=== PATIENT | female | born 1940 | race Caucasian/White ===

== ENCOUNTER 2020-09-02 11:24 | Emergency (ER) | payer MEDICARE ==
[2020-09-02] MEDS ORDERED: Bacitracin Oint 1 GM U/D Packet TOP ONE (11:43)
[2020-09-02] MEDS ORDERED: Lidocaine 1% with EPINEPHrine 1:100,000 50 ML MDV SUBCUT STA (11:43)
--- NOTE | 2020-09-02 11:58 | EDM.PDOC ---
ED HPI GENERAL MEDICAL PROBLEM - General Chief Complaint: Laceration Stated Complaint: GASH ON RIGHT LEFT, FELL OVER FENCE Time Seen by Provider: 09/02/20 11:35 Source of Information: Reports: Patient, Old Records History Limitations: Reports: No Limitations - History of Present Illness INITIAL COMMENTS - FREE TEXT/NARRATIVE: 80 yo female tripped on low fence today and incurred a laceration of the R medial leg. Bleeding has slowed on arrival. Is not sure about her tetanus status. No other injuries reported. Onset: Today, Sudden Onset Date: 09/02/20 Duration: Minutes:, Constant Location: Reports: Lower Extremity, Right Quality: Reports: Dull Severity: Mild Improves with: Reports: None Worsens with: Reports: None Context: Reports: Trauma Associated Symptoms: Reports: No Other Symptoms Treatments INSTRUMENT REPAIR SPECIALIST: Reports: Other (see below) (none) - Related Data Allergies Allergy/AdvReac Type Severity Reaction Status Date / Time No Known Allergies Allergy Verified 09/02/20 11:42 ED ROS GENERAL - Review of Systems Review Of Systems: See Below Constitutional: Reports: No Symptoms Skin: Reports: Wound (L shaped laceration of the R medial leg) Neurological: Reports: No Symptoms. Denies: Numbness Psychiatric: Reports: No Symptoms ED EXAM, SKIN/RASH Exam: See Below Exam Limited By: No Limitations General Appearance: Alert, WD/WN, No Apparent Distress Extremities: Other (wound R leg medially) Neurological: Alert, Oriented, CN II-XII Intact, Normal Cognition, No Motor/Sensory Deficits Psychiatric: Normal Affect, Normal Mood Skin: Warm, Dry, Normal Color, No Rash, Wound/Incision (11 cm L shaped laceration to the medial R leg. ). No: Intact Location, Skin: Lower Extremity, Right Characteristics: Other (L shaped) Associated features: Tenderness. No: Warmth, Induration, Lymphangitis ED SKIN PROCEDURES - Laceration/Wound Repair Right Medial Leg Appearance: Subcutaneous, Other (L shaped) Distal NVT: Neuro & Vascular Intact, No Tendon Injury Anesthetic Type: Local Local Anesthesia - Lidocaine (Xylocaine): 1% with EPI Skin Prep: Saline Saline Irrigation (cc's): 60 Exploration/Debridement/Repair: Wound Explored Closed with: Sutures Lac/Wound length In cm: 11 Suture Size: Other (4-0 and 5-0 Ethilon) # of Sutures: 20 Suture Type: Nylon, Interrupted, Simple, Mattress Drain Placement: No Sterile Dressing Applied: Nurse Tetanus Status Addressed: Yes Complications: No Course - Orders/Labs/Meds Orders: Active Orders 24 hr Category Date Time Status Bacitracin [Bacitracin Oint 1 GM] Med 09/02/20 11:43 Once 2 dose TOP ONETIME ONE Lidocaine 1% w/EPINEPHrine [Xylocaine 1% with Med 09/02/20 11:43 Stat EPINEPHrine 1:100,000] 12 ml SUBCUT NOW STA Departure - Departure Time of Disposition: 12:40 Disposition: Home, Self-Care 01 Condition: Fair Clinical Impression: Laceration of right leg excluding thigh Qualifiers: Encounter type: initial encounter Qualified Code(s): S81.811A - Laceration without foreign body, right lower leg, initial encounter - Discharge Information *PRESCRIPTION DRUG MONITORING PROGRAM REVIEWED*: Not Applicable *COPY OF PRESCRIPTION DRUG MONITORING REPORT IN PATIENT DONNA: Not Applicable Instructions: Laceration Care, Adult, [id number] Referrals: Clinton Ramachandran RESTAURANT TE[employer] MEMBER [Primary Care Provider] - Additional Instructions: Elevate your leg above your heart today to reduce bleeding and swelling. Keep your wound clean for 3 days. Wash wound twice daily with soap and water. Dry. Apply antibiotic ointment and a new dressing. Recheck for signs of infection. Acetaminophen up to 1000 mg every 6 hrs as needed for pain relief. Stitches out in about 9 days. - My Orders Last 24 Hours: My Active Orders 09/02/20 11:43 Bacitracin [Bacitracin Oint 1 GM] 2 dose TOP ONETIME ONE 09/02/20 11:43 Lidocaine 1% w/EPINEPHrine [Xylocaine 1% with EPINEPHrine 1:100,000] 12 ml SUBCUT NOW STA - Assessment/Plan Last 24 Hours: My Active Orders 09/02/20 11:43 Bacitracin [Bacitracin Oint 1 GM] 2 dose TOP ONETIME ONE 09/02/20 11:43 Lidocaine 1% w/EPINEPHrine [Xylocaine 1% with EPINEPHrine 1:100,000] 12 ml SUBCUT NOW STA
== END 2020-09-02 12:50 | disposition home or self-care (01) ==
LOC: JP.ED 11:24
DX: S81.811A Laceration without foreign body, right lower leg, initial encounter (principal); W01.0XXA Fall on same level from slipping, tripping and stumbling without subsequent striking against object, initial encounter
CPT/HCPCS: 12004; 99282-25

== ENCOUNTER 2020-09-02 21:51 | Emergency (ER) | payer MEDICARE ==
--- NOTE | 2020-09-02 22:07 | EDM.PDOC ---
ED HPI GENERAL MEDICAL PROBLEM - General Chief Complaint: Wound Recheck Stated Complaint: OPENED STITCHES Time Seen by Provider: 09/02/20 21:58 Source of Information: Reports: Patient, Old Records History Limitations: Reports: No Limitations - History of Present Illness INITIAL COMMENTS - FREE TEXT/NARRATIVE: Juliana is a 80-year-old female who was seen in the ED earlier today for evaluation of 11 cm laceration to her right lower leg. The wound was repaired with [address] Jones. The patient started bleeding after removing the dressing tonight and was concerned prompting her to come back in for evaluation. It appears on the lower laceration the wound was closed using vertical mattress sutures and one small segment had gapped a little bit at the wound edge allowing bleeding from the wound edge. There was no dehiscence of any of the sutures. 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: Oncologic (Cancer) History: Reports: Breast - Past Surgical History Head Surgeries/Procedures: Reports: None HEENT Surgical History: Reports: None Cardiovascular Surgical History: Reports: None GI Surgical History: Reports: Cholecystectomy Female Surgical History: Reports: Hysterectomy, Mastectomy Other Female Surgeries/Procedures: right mastectomy Oncologic Surgical History: Reports: None Dermatological Surgical History: Reports: None Social & Family History - Caffeine Use Caffeine Use: Reports: Coffee ED ROS GENERAL - Review of Systems Review Of Systems: See Below Skin: Reports: Wound (Bleeding from the middle section of the wound where the wound edges have opened slightly. There is no dehiscence of the sutures that have been placed.) ED EXAM, SKIN/RASH Exam: See Below Exam Limited By: No Limitations General Appearance: Alert, No Apparent Distress Skin: Wound/Incision (There is bleeding from the middle of the wound where the wound edges have slightly. This occurred after the patient wash the wound and remove the dressing. There was no dehiscence of the sutures. The wound otherwise appears to be intact.) ED WOUND PROCEDURES - Laceration/Wound Repair Right Lower Leg Laceration/Wound Length In cm: 11 Appearance: Subcutaneous Distal NVT: Neuro & Vascular Intact Wound Exploration, Debridement, Revision: Wound Explored Suture Size: Other (The wound gapped mildly at some segments so Dermabond was used to close the length of the wound. Vertical mattress sutures provide good stability of the wound otherwise.) Sterile Dressing Applied: Provider (I provided a sterile 4 x 4 over which Tegaderm was applied and Coban over this to secure it. Was no further bleeding.) Course - Re-Assessments/Exams Free Text/Narrative Re-Assessment/Exam: 09/02/20 22:09 wound was examined and shows some mild bleeding from the wound edges that have gapped slightly despite the vertical mattress sutures. The wound edges were closed using Dermabond and bleeding was controlled. A dressing was applied by me over this. Wound management was discussed. The sutures will still need to be removed in 10 days. Indications to return to the ED were discussed. She should keep the dressing in place for 24 hours. Departure - Departure Time of Disposition: 22:11 Disposition: Home, Self-Care 01 Clinical Impression: Encounter for wound re-check - Discharge Information Instructions: Wound Care, Adult Referrals: Clinton Ramachandran, DIGITAL MARKETING ASSOCIATE [Primary Care Provider] - Care Plan Goals: Care as described before. Sutures need to be removed in 10 days. He may keep the dressing in place for the next 24 hours. - Problem List & Annotations (1) Encounter for wound re-check SNOMED Code(s): 660303645, [id number], [id number], [id number] Code(s): Z51.89 - ENCOUNTER FOR OTHER SPECIFIED AFTERCARE Status: Acute Priority: Low Current Visit: Yes - Problem List Review Problem List Initiated/Reviewed/Updated: Yes
== END 2020-09-02 22:27 | disposition home or self-care (01) ==
LOC: JP.ED 21:51
DX: S81.811A Laceration without foreign body, right lower leg, initial encounter (principal); E78.00 Pure hypercholesterolemia, unspecified; I10 Essential (primary) hypertension; Z79.899 Other long term (current) drug therapy; X58.XXXA Exposure to other specified factors, initial encounter
CPT/HCPCS: 12004; 99282-25

== ENCOUNTER 2023-03-15 07:59 | Emergency (ER) | payer OTHER, MEDICARE ==
[2023-03-15] MEDS: Bacitracin Oint 1 GM U/D Packet TOP ONE (08:39)
[2023-03-15] MEDS: Acetaminophen 500 MG Tab PO ONE (08:40)
[2023-03-15] MEDS: Ondansetron 4 MG Tab.DIS PO ONE (09:42)
== END 2023-03-15 11:37 | disposition home or self-care (01) ==
LOC: JP.ED 07:59
DX: S39.92XA Unspecified injury of lower back, initial encounter (principal); S81.811A Laceration without foreign body, right lower leg, initial encounter; S22.082A Unstable burst fracture of T11-T12 vertebra, initial encounter for closed fracture; I10 Essential (primary) hypertension; E78.00 Pure hypercholesterolemia, unspecified; V89.2XXA Person injured in unspecified motor-vehicle accident, traffic, initial encounter
CPT/HCPCS: 70450; 70450-26; 72131; 72131-26; 76377; 99284; A9270-GY; Q0162